=== PATIENT | male | born 1975 | race African-American/Black ===

== ENCOUNTER 2022-03-20 10:54 | Emergency (ER) | payer OTHER ==
[2022-03-20 11:00] VITALS: BP 118/84; PULSE 88; RESP 14; TEMP 98.5
--- NOTE | 2022-03-20 13:23 | ED ---
Back Pain HPI - General Chief Complaint: Back Pain/Injury Stated Complaint: Back problems Time Seen by Provider: 03/20/22 13:06 Source: patient, RN notes reviewed Limitations: no limitations - History of Present Illness Initial Comments: 46-year-old male presents emergency Department with chief complaint of low back pain. Patient's exam and back pain and right side. He states has been present for several months. It is usually exacerbated by exercise. Denies any bowel, bladder incontinence retention or saddle anesthesias. No pain areas down his leg. He has no difficulty ambulating states the pain lasts happened on Friday is improved at this time. Patient denies any prior surgeries. Patient offers no complaints. - Related Data Previous Rx's Medication Instructions Recorded Cyclobenzaprine [Flexeril] 10 mg PO TID PRN #15 tab 03/20/22 Allergies Allergy/AdvReac Type Severity Reaction Status Date / Time No Known Allergies Allergy Verified 03/20/22 11:00 Review of Systems ROS Statement: Those systems with pertinent positive or pertinent negative responses have been documented in the HPI. ROS Other: All systems not noted in ROS Statement are negative. Past Medical History Additional Past Medical History / Comment(s): foot deformity History of Any Multi-Drug Resistant Organisms: None Reported Past Surgical History: No Surgical Hx Reported Past Psychological History: No Psychological Hx Reported Smoking Status: Current every day smoker Past Alcohol Use History: None Reported Past Drug Use History: None Reported General Exam Limitations: no limitations General appearance: alert, in no apparent distress Head exam: Present: atraumatic, normocephalic, normal inspection Eye exam: Present: normal appearance, PERRL, EOMI. Absent: scleral icterus, conjunctival injection, periorbital swelling ENT exam: Present: normal exam, normal oropharynx, mucous membranes moist Neck exam: Present: normal inspection, full ROM. Absent: tenderness, meningismus, lymphadenopathy Respiratory exam: Present: normal lung sounds bilaterally. Absent: respiratory distress, wheezes, rales, rhonchi, stridor Cardiovascular Exam: Present: regular rate, normal rhythm, normal heart sounds. Absent: systolic murmur, diastolic murmur, rubs, gallop, clicks GI/Abdominal exam: Present: soft, normal bowel sounds. Absent: distended, tenderness, guarding, rebound, rigid Extremities exam: Present: normal inspection, full ROM, normal capillary refill, other (Lower extremity pulses equal bilaterally, equal and equal warmth strength is equal bilateral lower extremities). Absent: tenderness, pedal edema, joint swelling, calf tenderness Back exam: Present: full ROM, tenderness (Minimal right lower lumbar), paraspinal tenderness. Absent: vertebral tenderness Neurological exam: Present: alert, oriented X3, CN II-XII intact, reflexes normal. Absent: motor sensory deficit Skin exam: Present: warm, dry, intact, normal color. Absent: rash Course Vital Signs 03/20/22 10:57 Temperature 98.5 F Pulse Rate 88 Respiratory 14 Rate Blood Pressure 118/84 O2 Sat by Pulse 99 Oximetry Medical Decision Making - Medical Decision Making X-ray shows degenerative changes L4-L5 L5-S1 patient has no red flag symptoms. Patient has no current radicular symptoms, only complains of minimal back pain. His been ongoing issue related to degenerative changes. Patient discharged in stable condition return parameters discussed. Disposition Clinical Impression: Lumbar degenerative disc disease, Low back pain Disposition: HOME SELF-CARE Condition: Stable Instructions (If sedation given, give patient instructions): Acute Low Back Pain (ED) Additional Instructions: Please return to the Emergency Department if symptoms worsen or any other concerns. Prescriptions: Cyclobenzaprine [Flexeril] 10 mg PO TID PRN #15 tab PRN Reason: Muscle Spasm Is patient prescribed a controlled substance at d/c from ED?: No Referrals: Emil Thompson MD [Primary Care Provider] - 1-2 days Floyd Patel DO [Doctor of Osteopathic Medicine] - 1-2 days Time of Disposition: 14:15
--- NOTE | 2022-03-20 13:52 | XR ---
Lumbar spine HISTORY: Pain 3 views of lumbar spine Lumbar vertebral bodies show preserved height, bone mineralization, alignment. Mild loss of disc heig ht present L4-5, L5-S1. There is multilevel spondylosis present. Sclerosis in the posterior elements of the lower lumbar spine is consistent with facet arthropathy. IMPRESSION: Degenerative disc disease and facet arthropathy.
== END 2022-03-20 14:30 | disposition home or self-care (01) ==
LOC: EC 10:54
DX: M51.36 Other intervertebral disc degeneration, lumbar region (principal); F17.200 Nicotine dependence, unspecified, uncomplicated
CPT/HCPCS: 72100; 99283